=== PATIENT | female | born 1975 | race Caucasian/White ===

== ENCOUNTER 2018-11-14 11:05 | Emergency (ER) | payer OTHER, SELFPAY ==
[2018-11-14 11:06] VITALS: BP 169/121; PULSE 95; RESP 16; TEMP 36.7; O2SAT 98; BMI 33.9
--- NOTE | 2018-11-14 11:13 | CT_ITS ---
STUDY: CT ABDOMEN AND PELVIS WITHOUT CONTRAST REASON FOR EXAM: Female, 43 years old. Left flank pain and hematuria RADIATION DOSAGE (If Supplied By Facility): CTDIvol = ( 14.95 ) mGy, DLP = ( 818.22 ) mGycm TECHNIQUE: Transaxial images were obtained from the dome of the diaphragm to the symphysis pubis without oral contrast, and without intravenous contrast. Sagittal and coronal images were reconstructed. Individualized dose optimization techniques were used for this CT. COMPARISON: CT abdomen and pelvis 08/30/2016. FINDINGS: Lack of intravenous contrast limits evaluation of abdominal and pelvic organs. There is a 3 mm left lower lobe subpleural nodule on series 2 image 16, this may have been previously obscured by atelectasis on prior exam. The visualized portions of the heart are within normal limits. Normal liver. Normal gallbladder and extrahepatic biliary system. Normal spleen. Normal pancreas. Normal bilateral adrenal glands. Normal right kidney. There is mild left hydronephrosis secondary to a 3 mm proximal left ureteral stone near the left UPJ. There is a punctate, nonobstructing left renal lower pole stone. Normal visualized stomach. Normal small intestine. Normal colon. The appendix is visualized and appears normal. Normal abdominal aorta. Normal inferior vena cava. Normal retroperitoneum. Normal urinary bladder. Normal abdominal wall. There is mild levocurvature of the lumbar spine. CT/Abdomen/Pelvis without Cont IMPRESSION: Mild left hydronephrosis secondary to a 3 mm proximal left ureteral stone near the left UPJ. There is a punctate, nonobstructing left renal lower pole stone. Electronically Signed: Theresa Colorado, at 12:19 EDT Tel , Service support ,
--- NOTE | 2018-11-14 11:15 | ED.VIS.GEN ---
History of Present Illness Chief Complaint: Complaint Narrative: 43-year-old female presents with 2 days of bilateral flank pain, lower anterior abdominal pain, hematuria, and dysuria. Started out gradually, mostly as dysuria and urinary urgency but the pain has progressed since then. It did not involve the flanks until this morning. It is worse on the left flank. She was at the urgent care this morning and had a large amount of blood in her urine. There was concern for kidney stone, of which she has no known history. No obvious relieving or exacerbating factors. Current severity is moderate. Past Medical History - Allergies and Home Meds Allergies/Adverse Reactions: Allergies propoxyphene [From Darvocet-N] Adverse Reaction (Unknown, Verified 09/13/16 14:45) Vomiting Primary Care Physician: Brenden Disla MD [Primary Care Provider] - Smoking Status: Never smoker Review of Systems General: Denies: Chills, Fever, Sweats Eyes: Denies: Visual changes - bilaterally, Diplopia ENT: Denies: Rhinorrhea, Sore throat Cardiovascular: Denies: Chest pain, Palpitations Respiratory: Denies: Dyspnea, Cough, Dyspnea on exertion Gastrointestinal: Reports: Abdominal pain, Nausea. Denies: Vomiting, Diarrhea, Melena, Hematochezia Genitourinary: Reports: Dysuria, Hematuria, Frequency Musculoskeletal: Reports: Back pain. Denies: Extremity Pain Skin: Denies: Rash, Wounds Neurological: Denies: Headache, Weakness, Numbness Physical Exam Vital Signs/Narrative: Vital Signs Temp Pulse Resp BP Pulse Ox 11/14/18 11:06 98.1 F 95 16 169/121 H 98 General: Acute Distress Head: Normocephalic, Atraumatic Eyes: Perrl, EOMI ENT: Dry mucous membranes Neck: Supple, Nontender Cardiovascular: Regular rate, Regular rhythm, No murmurs Respiratory: No distress, CTA bilaterally, Chest nontender Abdomen: Soft, Nontender, Nondistended, Normal bowel sounds Back: Nontender, Normal Inspection Extremities: Nontender, No edema Skin: Normal color, No rash Neurological: Alert, Oriented x3, Cranial nerves II-XII grossly intact, Normal Strength, Normal Sensation Psychological: Normal affect, Normal Mood Diagnostic/Tx/Re-eval - Medical Decision Making CT scan reveals a 3 mm obstructing proximal stone on the left. There is hydronephrosis on the left. Urinalysis is unremarkable except for blood. Labs are within normal limits. No leukocytosis. I do not feel she needs antibiotics. She was given IV fluids and pain meds and feels much better. She is comfortable going home. She was referred to urology. She will return if worse. ED Disposition - Plan for ED Patient: Disposition: Home or Assisted Living Diagnosis: Ureteral obstruction, left Instructions: ED Stone Renal W Colic Prescriptions: Oxycodone HCl/Acetaminophen [Percocet 5/325] 1 tablet PO Q6H PRN PRN 3 Days #12 tablet PRN Reason: Pain Tamsulosin HCl [Flomax] 0.4 mg PO DAILY #7 capsule Referrals: Haris Doherty MD [STAFF PHYSICIAN] - As soon as possible
[2018-11-14] MEDS: 0.9% Normal Saline 1,000 ML 999 ML IV ×2 (11:32→13:01)
[2018-11-14] MEDS: Ondansetron 4 MG/2 ML Vial IV (11:32)
[2018-11-14] MEDS: Ketorolac 30 MG/ML Syringe IV (11:32)
[2018-11-14 11:37] LABS: Mucous, Urine 0 SEEN /hpf (<or=2+); White Blood Cells 0 SEEN /hpf (0-5)
[2018-11-14 11:43] LABS: Color, Urine Yellow (Yellow); Glucose, Dipstick Normal (Normal); Ketone-Dipstick Negative (Negative); Leukocyte Esterase-Dipstick Negative /ul (Negative); Nitrite-Dipstick Negative (Negative); Occult Blood-Urine 250 /ul (Negative); Protein-Dipstick Negative (Negative); Urine Bilirubin Dipstick Negative (Negative); Urine Clarity Cloudy (Clear); Urine Urobilinogen Normal (Normal); Urine pH 6.5 (5.0 - 8.0)
[2018-11-14 11:45] LABS: Absolute Lymphocyte Count 1.76 X10^3/ul (0.83-4.51); Absolute Neutrophil Count 8.6 X10^3/uL (2.0-7.7); Basophil# 0.02 X10^3/uL; Basophil% 0.2 % (0-1); Eosinophil# 0.08 X10^3/uL; Eosinophils% 0.7 % (0-5); Hematocrit 42.8 % (37-47); Hemoglobin 14.5 g/dl (12.0-15.0); Lymphocyte # 1.76 X10^3/ul (4.0); Lymphocyte % 15.3 % (19-41); Mean Corp Hgb Conc 33.9 g/gl (32-36); Mean Corpuscular Hgb 29.8 pg (27.0-32.0); Mean Corpuscular Volume 87.9 fL (81-99); Mean Platelet Vol. 9.1 fl (6.2-12.0); Monocyte# 0.97 X10^3/uL; Monocyte% 8.4 % (0-10); Neutrophil # 8.64 X10^3/uL (2.7-7.7); Neutrophil % 75.2 % (47-70); Platelet Count 299 K/mm3 (150-450); RBC Distribution Width SD 44.9 fl (35.1-43.9); Red Blood Count 4.87 M/mm3 (4.2-5.4); White Blood Count 11.5 K/mm3 (4.4-11.0)
[2018-11-14 11:49] LABS: POSITIVE COUNT NO; POSITIVE DIFFERENTIAL NO; POSITIVE MORPHOLOGY NO
[2018-11-14 11:52] LABS: Anion Gap 8 (5-15); BUN 10 mg/dL (7-18); BUN/Creat Ratio 10.6 RATIO (10-20); Calcium,Total 8.6 mg/dL (8.5-10.1); Chloride 105 mmol/L (98-107); Creatinine, Serum 0.94 mg/dL (0.55-1.02); EST Glomerular Filtration Rate 68 mL/min (>60); Est Glom Filt Rate - Afr Amer 83 mL/min (>60); Estimated Creatinine Clearance 68.01 ml/min; Glucose 101 mg/dL (74-106); Potassium 3.8 mmol/L (3.5-5.1); Sodium Level 139 mmol/L (136-145)
[2018-11-14 11:55] LABS: Red Blood Cells-Urine > 100 SEEN /hpf (0-5)
[2018-11-14 11:58] LABS: Bacteria RARE /hpf (None Seen); Squamous Epithelial Cells - UA 0-5 SEEN /hpf (5-10)
[2018-11-14] MEDS: Morphine 4 MG/ML Syringe IV (13:00)
[2018-11-14 13:06] VITALS: BP 167/78; PULSE 78; RESP 16; O2SAT 99
[2018-11-14] MEDS: HYDROmorphone 1 MG/ML Syringe IV (14:33)
[2018-11-14 15:00] VITALS: BP 128/80; PULSE 74; RESP 16; O2SAT 97
--- NOTE | 2018-11-14 17:41 | ED.RN ---
PT CALLED ASKING ABOUT NAUSEA MEDICATION. PT RECEIVED DOSE OF ZOFRAN IN ED, BUT NO PRESCRIPTION WAS GIVEN ON DISCHARGE. REQUESTING A PRESCRIPTION VIA PHONE CALL FOR ZOFRAN. THIS RN SPOKE WITH DR. BUNN. DR. BUNN CALLED IN PRESCRIPTION FOR ZOFRAN TO PT REQUESTED PHARMACY. THIS RN EDUCATED PT OVER THE PHONE ON THE ZOFRAN. VERBALIZES UNDERSTANDING AND DENIES ANY FURTHER QUESTIONS.
== END 2018-11-14 15:36 | disposition home or self-care (01) ==
PROVIDERS: Emergency Provider Emergency Medicine; Family Provider Family Medicine; PCP Family Medicine
DX: N13.1 Hydronephrosis with ureteral stricture, not elsewhere classified (principal)
CPT/HCPCS: 74176; 80048; 81001; 85025; 96361; 96374; 96375; 99283; J7030; J2405

== ENCOUNTER → 2018-11-17 | Outpatient (CLI) | payer OTHER, SELFPAY ==
[2018-11-14 11:06] VITALS: BMI 33.9
--- NOTE | 2018-11-17 10:50 | RAD_ITS ---
STUDY: X-RAY - ABDOMEN/PELVIS REASON FOR EXAM: Female, 43 years old. Left ureteral stone. TECHNIQUE: AP supine view. COMPARISON: CT abdomen and pelvis without contrast 11/14/2018. FINDINGS: Normal visualized lung bases. 4.5 x 3 mm radiopaque calculus above the left L2 transverse process is unchanged. Normal bowel gas pattern. There is no demonstrated free abdominal air. The visualized liver, spleen and kidneys are grossly normal in size and morphology. Normal soft tissue structures. Normal visualized osseous structures. RAD/Abdomen Single View IMPRESSION: 4.5 x 3 mm radiopaque calculus above the left L2 transverse process is unchanged when compared to CT of the abdomen of 11/14/2018. Electronically Signed: Nakul Dee MD at 11:26 EDT , Service support ,
== END | disposition home or self-care (01) ==
PROVIDERS: Family Provider Family Medicine; PCP Family Medicine; Referring Provider Nurse Practitioner Adult Health; Visit Provider Nurse Practitioner Adult Health
DX: N20.1 Calculus of ureter (principal)
CPT/HCPCS: 74018

== ENCOUNTER 2018-11-19 14:19 | Day surgery (SDC) | payer OTHER, SELFPAY ==
--- NOTE | 2018-11-19 12:03 | RAD_ITS ---
STUDY: X-RAY - ABDOMEN/PELVIS REASON FOR EXAM: Female, 43 years old. Left kidney stone. TECHNIQUE: Single AP view of the abdomen / pelvis. COMPARISON: Comparison is made with prior examination dated November 17, 2018. FINDINGS: There is a moderate amount of colonic fecal material. There is evidence of a 4.2 mm x 3 mm calculus overlying the transverse processes of the L2 vertebra on the left side. This is unchanged. Normal soft tissue structures. Normal visualized osseous structures. RAD/Abdomen Single View IMPRESSION: Stable appearance and location of the 4.2 mm x 3 mm calculus overlying the transverse processes of the L2 vertebra on the left side. Electronically Signed: Axel Badillo, at 14:54 EDT , Service support ,
[2018-11-19 14:51] VITALS: BP 142/95; PULSE 90; RESP 18; TEMP 37.2; O2SAT 100; BMI 34.4
[2018-11-19] MEDS: Cefazolin 2 GM in 0.9% Normal Saline 100 ML IV (15:43)
[2018-11-19 17:04] VITALS: BP 142/95; BP 147/96; PULSE 81; RESP 16; TEMP 36.8; O2SAT 94
--- NOTE | 2018-11-19 17:04 | DCINST_ITS ---
Discharge Diet: Light diet - advance as tolerated Discharge Activity: Return to Normal Activity Instructions: Shock Wave Lithotripsy, Ureteral Stents Allergies/Adverse Reactions: Allergies propoxyphene [From Darvocet-N] Adverse Reaction (Unknown, Verified 11/18/18 08:53) Vomiting Medications to take at Discharge Ibuprofen [Motrin] 800 mg PO Q6H 09/13/16 Multivitamin [Multiple Vitamins] 1 each PO DAILY 09/13/16 Tamsulosin HCl [Flomax] 0.4 mg PO DAILY #7 capsule 11/14/18 Ondansetron HCl [Zofran] 4 mg PO PRN PRN 11/18/18 Oxycodone HCl/Acetaminophen [Percocet 5-325 mg Tablet] 1 each PO DAILY PRN 11/18/18 Polyethylene Glycol 3350 [Miralax] 17 gm PO BID 11/18/18 Hydrocodone/Acetaminophen [[place] 5-325 Tablet] 1 ea PO Q4H PRN PRN 5 Days #20 tab 11/19/18 The following prescriptions were given: Hydrocodone/Acetaminophen [[place] 5-325 Tablet] 1 ea PO Q4H PRN PRN 5 Days #20 tab PRN Reason: Pain Primary Care Physician: Brenden Disla MD [Primary Care Provider] - Test Results: Test results from this visit will be discussed in further detail at your follow- up appointment, if applicable. Please Follow Up With: Haris Doherty MD When: please call to make an appointment. xray and stent removal.
--- NOTE | 2018-11-19 17:06 | PCM.OPRPT ---
Report of Operation Date of Procedure: 11/19/18 Pre-Operative Diagnosis: Left ureteral calculi proximal Post-Operative Diagnosis: Same Surgery/Procedure Performed:: Cystoscopy and left stent placement, left extracorporeal shockwave lithotripsy Description of Surgical Findings:: 43-year-old female presented to the emergency room with severe renal colic she had a stone in the proximal left ureter causing hydronephrosis and obstruction. She is elected to undergo shockwave lithotripsy possible stent placement for treatment of the stone. She understands is always risk of bleeding infection failure to treat the stone and requiring multiple procedures. 43-year-old female taken back to the operating room at the smooth induction of general anesthesia she was placed in dorsolithotomy position. We then placed her flat on the table identified the stone in the proximal ureter commenced with shockwave lithotripsy and after 2000 shockwaves a stone is not really broken much we checked fluoroscopy during treatment to make sure we are on the focal point which we were, at that point we decided to place a stent. The urethra and vaginal area prepped and draped in usual sterile fashion in the bladder with a 21 [place] rigid cystourethroscope identified the trigone, identified the left ureteral orifice advanced a wire up past the stone up into the kidney and then over wire advanced a 6 [place] by 26 cm stent, when the stent reached the stone was quite hard to get the stent passed it took a little bit of force and then finally I was able to get the stent passed a stone in the stone broke free loose and then the stent coiled in the bladder and in the kidney in good position pulled the wire. We then proceeded with more shockwave treatments we gave another 2000 shockwaves to the stone with a total of 4000 kV ranging from 5-7 and at the end of the treatment appeared the stone is successfully fragmented little tiny pieces we could not see any more significant calcification on fluoroscopy. Left the stent in place the string is intact for easy extraction plan to see the patient next week with a KUB and if it is clear we will remove the stent. Type of Anesthesia:: General Drains: stent - Admit VTE Documentation VTE Present on Admission: No VTE Mechan Device Prophylaxis: SCD's
[2018-11-19 17:15] VITALS: BP 142/95; BP 158/97; PULSE 73; RESP 16; O2SAT 97
[2018-11-19 17:30] VITALS: BP 142/95; BP 162/98; PULSE 75; RESP 16; TEMP 38; O2SAT 96
[2018-11-19] MEDS: oxyCODONE 5 MG Tablet PO (18:20)
[2018-11-19 18:44] VITALS: BP 142/95; BP 168/93; PULSE 75; RESP 16; TEMP 37; O2SAT 100
== END 2018-11-19 19:06 | disposition home or self-care (01) ==
LOC: SDC 14:20 → AC 14:36
PROVIDERS: Family Provider Family Medicine; PCP Family Medicine; Referring Provider Urology; Visit Provider Urology
PROC: (CPT 50590; principal; 2018-11-19 16:20)
DX: N13.2 Hydronephrosis with renal and ureteral calculous obstruction (principal); Z87.442 Personal history of urinary calculi
CPT/HCPCS: 50590; 52332; 74018; J7120; C2617; J2405

== ENCOUNTER → 2018-11-24 13:19 | Outpatient (CLI) | payer OTHER, SELFPAY ==
[2018-11-19 14:51] VITALS: BMI 34.4
--- NOTE | 2018-11-24 13:20 | RAD_ITS ---
STUDY: X-RAY - ABDOMEN/PELVIS REASON FOR EXAM: Female, 43 years old. Status post stent placement and lithotripsy. TECHNIQUE: Single AP view of the abdomen / pelvis. COMPARISON: 11/19/2016. FINDINGS: There is a new left sided double-J stent catheters with the proximal tip in the region of the left renal pelvis and the distal tip in the region of the bladder. There are nonspecific gaseous bowel loops and colon. There is mild fecal retention. The previously noted small stone on the left side of L2 is not seen at this time. Normal soft tissue structures. Normal visualized osseous structures. RAD/Abdomen Single View IMPRESSION: Status post left double J stent catheter placement. No abnormal calcifications are identified. Electronically Signed: Basil Mi MD at 8:28 EDT Tel , Service support ,
== END ==
PROVIDERS: Family Provider Family Medicine; PCP Family Medicine; Referring Provider Nurse Practitioner Adult Health; Visit Provider Nurse Practitioner Adult Health
DX: N20.0 Calculus of kidney (principal)
CPT/HCPCS: 74018

== ENCOUNTER 2023-05-02 12:18 | Observation (INO) | payer BC, SELFPAY ==
--- NOTE | 2023-04-23 10:10 | HP.PCM_ITS ---
History and Physical Date of Admission: 05/02/23 HPI: The patient is a 47 year old female presenting for pre-operative visit. She is scheduled for [facility], for AUB and uterine fibroids on 05/02/23. Procedure discussed along with risks, benefits and complications. Other alternatives discussed for management. Consent form signed? Yes. ? ? PAST MEDICAL HISTORY PAST MEDICAL HISTORY Diagnosis Date ? Back pain, chronic ? ? Irritable bowel syndrome ? ? Other anxiety states ? ? Tachycardia, unspecified ? ? Variants of migraine, not elsewhere classified, without mention of intractable migraine without mention of status migrainosus ? ? ? PAST SURGICAL HISTORY PAST SURGICAL HISTORY Procedure Laterality Date ? ARTHRS AIDED ANT CRUCIATE LIGM RPR/AGMNTJ/RCNSTJ ? 10/07/2012 ? Right knee ? LAPARCOPIC LYSIS OF ADHESIONS ? 09/18/2016 ? Laparascopy with bilateral salpingectomy and KENISHA for TOA after IUD insertion ? PAST SURGICAL HISTORY OF ? 1999 ? LEFT SHOULDER ARTHROSCOPY ? PAST SURGICAL HISTORY OF ? remotely ? wisdom teeth ext ? PAST SURGICAL HISTORY OF ? 05/01/2013 ? right knee scope with shaving & debridement ? ? ? CURRENT MEDICATIONS Current Outpatient Medications Medication Sig Dispense Refill ? tranexamic acid (LYSTEDA) 650 mg tablet Take 2 tablets by mouth three times daily. dispense every 21-28 days as needed for menstrual cycles 30 tablet 11 ? ferrous sulfate (IRON ORAL) Take by mouth. ? ? ? ibuprofen (MOTRIN) 200 mg tablet Take 200 mg by mouth every 6 hours as needed. ? ? ? MULTI-VITAMIN ORAL Take by mouth. ? ? ? naproxen (NAPROSYN) 500 mg tablet Take 1 tablet by mouth twice daily as needed. FOR PAIN. TAKE WITH FOOD. 60 tablet 3 ? EPINEPHrine (EPIPEN) 0.3 mg/0.3 mL (1:1,000) atIn Inject 0.3 mL intramuscularly as directed. 1 Each 1 ? No current facility-administered medications for this visit. ? ? ALLERGIES: Darvocet-N 100 [Propoxyphene N-Acetaminophen] and Wasps ? PERSONAL HISTORY: SOCIAL HISTORY Social History ? Tobacco Use ? Smoking status: Never ? Smokeless tobacco: Never Vaping Use ? Vaping Use: Never used Substance Use Topics ? Alcohol use: Yes ? ? Comment: rare ? Drug use: No ? ? Comment: remote marijuana use ? FAMILY HISTORY: FAMILY HISTORY FAMILY HISTORY Problem Relation Age of Onset ? Cancer Mother ? ? SKIN CANCER ? Lipids Mother ? ? High cholesterol ? Hypertension Brother ? ? Heart Brother ? ? AFIB ? Stroke Maternal Grandmother ? ? Colon Cancer Maternal Grandfather ? ? Arthritis Paternal Grandmother ? ? Thyroid Paternal Grandmother ? ? Osteoporosis Paternal Grandmother ? ? Heart Paternal Grandfather ? ? [place] ? Breast Cancer Paternal great-grandmother ? ? ? REVIEW OF SYMPTOMS: GENERAL: denies fevers or chills ENDOCRINOLOGY: has not been on steroids Cardiology : denies palpitations or chest pain Respiratory: denies SOB or cough Hematology: denies history of prolonged bleeding or easy bruising or VTE Allergy: Denies history of personal or family history of allergy to anesthesia PHYSICAL EXAMINATION: ? VITALS: Last menstrual period 09/24/2022. ? GENERAL: The patient is well nourished, well hydrated in no acute distress. , The patient is oriented to time, place, and person. NECK: Supple. No lynphadenopathy, normal thyroid, no thyromegaly. LUNGS: Clear to auscultation bilaterally. no wheezes, rhonchi or rales HEART: Regular rate and rhythm, Normal heart sounds, and No murmurs or gallops GENITALIA: Normal external genitalia, Urethral meatus normal, Bladder nontender, normal vagina and normal vaginal tone, normal cervix, normal uterus, size and consistency, normal adnexa without masses or tenderness, and perineum WNL WET PREP: Not indicated ? IMPRESSION: AUB and uterine fibroids ? PLAN: The risks/benefits/alternatives and personal involved for the planned LAVH were reviewed with the patient. Her questions were answered to her satisfaction and she desires to proceed. Consent was signed. I reviewed with her postop instructions and expectations. ? ? I have reviewed and updated past medical and surgical history, medications and allergies Assessment & Plan Assessment/Plan (1) Abnormal uterine bleeding (AUB): (2) Uterine fibroid: (3) Adenomyosis:
[2023-05-02] VITALS (11 sets, daily range): BP systolic 111–146; BP diastolic 67–97; PULSE 62–93; RESP 12–18; TEMP 36.3–37.4; O2SAT 18–100; BMI 31.9; BMI 33.0
[2023-05-02] MEDS: Celecoxib 200 MG Capsule 400 MG PO (06:29)
[2023-05-02] MEDS: Acetaminophen 500 MG Tablet 1000 MG PO (06:29)
[2023-05-02] MEDS: Scopolamine 1mg/72hr Patch 1 PATCH TD (06:30)
[2023-05-02] MEDS: Gabapentin 600 MG Tablet PO (06:31)
[2023-05-02 06:35] LABS: Internal QC Validated? YES +Cl - CLEAR BKGD; Pregnancy, Urine Negative Negative
[2023-05-02 06:43] LABS: Bedside Glucose 92 mg/dL (74-106)
[2023-05-02] MEDS: dexAMETHasone 4 MG/ML Vial 8 MG IV (06:45)
[2023-05-02] MEDS: Enoxaparin 40 MG/0.4 ML Syringe SC (06:45)
[2023-05-02] MEDS: Lactated Ringers 1,000 ML 40 ML IV (06:45)
[2023-05-02 06:48] LABS: Hematocrit 43.9 % (37-47); Hemoglobin 14.3 g/dL (12.0-15.0); Mean Corp Hgb Conc 32.6 g/dL (32-36); Mean Corpuscular Hgb 28.6 pg (27.0-32.0); Mean Corpuscular Volume 87.8 fL (81-99); Mean Platelet Vol. 9.6 fl (6.2-12.0); Platelet Count 307 K/mm3 (150-450); RBC Distribution Width SD 44.7 fl (35.1-43.9)
[2023-05-02 07:12] LABS: Magnesium 2.1 mg/dL (1.6-2.6)
--- NOTE | 2023-05-02 07:30 | HYST_PTH ---
PATIENT: EVERARDO GARCIAEACCT #:[id number] LOC: MS3 U#:[id number] AGE/SX: 47/F ROOM: NH312 RE05/02/[address]: Dr. Lisa Yates MD : 1975 BED: 1 DIS: 05/03/2023 SPEC #: [id number] RECD: 05/02/23 11:59 STATUS: MILAGRO KUMAR #: [id number] DEJUAN: 05/02/23 07:[address]: Lisa Yates DEPT: SURGICAL PATHOLOGY RECD BY: Rosetta Landon ENTERED: 05/02/23 11:59 SP TYPE: HYSTERECT OTHR DR: MD Dr. Brenden Chávez MD Tissues: Uterus, NOS Procedures: Surgery Specimen Level V HEADER OPERATION: ERAS, hysterectomy, LAVH PRE-OP DIAGNOSIS: Abnormal uterine bleeding, uterine fibroid, adenomyosis TISSUE SUBMITTED: Uterus and cervix MICROSCOPIC DIAGNOSIS Uterus, hysterectomy: Cervix - Nabothian cysts and mild chronic inflammation. Endometrium - secretory endometrium. Myometrium - leiomyomas. AM:franky 05/03/2023 MICROSCOPIC DESCRIPTION Slides are reviewed. GROSS DESCRIPTION Received in fixative is one container labeled with the patient's name and designated uterus and cervix. The specimen consists of a previously opened uterus with attached cervix without fallopian tubes or ovaries measuring 17.0 x 16.0 x 9.5 cm and weighing 615 gm. The endocervical canal measures 5.0 cm in length and is grossly unremarkable. The elongated endometrial cavity measures 6.0 x 3.0 cm. The velvety, reddish endometrium measures up to 0.2 cm in thickness. The myometrium measures 4.0 cm in average thickness and is distorted by multiple spherical rubbery nodules resembling leiomyomas that range in size from 0.7 to 5.5 cm. Cut sections of these nodules reveal a whorled, rubbery surface without areas of cyst formation, necrosis or hemorrhage. Maintenance Tech sections are submitted in nine cassettes as follows: 1 - anterior cervix, 2 - posterior cervix, 3-6 - endometrium and myometrial, 7??largest myometrial mass, 8 - second largest myometrial mass, 9 - third largest myometrial mass. / AM:franky 05/02/2023 TC:1 CPT: 43453
[2023-05-02] MEDS: Magnesium 1 GM over 15 mins IV (07:32)
[2023-05-02] MEDS: Cefazolin 2 GM in 0.9% Normal Saline (100mL Bag) 100 ML IV (07:43)
[2023-05-02] MEDS: Bupivacaine Mpf 0.5% 30 ML VIAL (08:15)
[2023-05-02] MEDS: Lidocaine 1%/Epi 1:200 (30ml) 30 ML AMPUL (10:00)
[2023-05-02] MEDS: Ondansetron 4 MG/2 ML Vial IV (10:16)
[2023-05-02] MEDS: Lactated Ringers @ 70 MLS/HR 70 ML IV (10:55)
--- NOTE | 2023-05-02 11:46 | PCM.OPRPT ---
Problems Associated Problem List Diagnoses (1) Abnormal uterine bleeding (AUB): (2) Uterine fibroid: (3) Adenomyosis: Report of Operation Date of Procedure: 05/02/23 Pre-Operative Diagnosis: uterine fibroids, AUB, adenomyosis Post-Operative Diagnosis: same Surgery/Procedure Performed:: ROBERT Description of Surgical Findings:: enlarged bulky uterus weighing 647 gm in the operating room. Grossly normal ovaries. fallopian tubes absent Surgeon: Lisa Yates natural resource manager: Doug Ferro Type of Anesthesia: General Anesthesiologist: Erna Hagen Special Medications: none Specimen's removed: uterus and cervix Drains: fole Estimated Blood Loss (mL): 350 Fluids Replaced: 1999 Description of Procedure: The patient was taken to the operating room where she was prepped and draped in the dorsal lithotomy position. Her arms were tucked to the side and padded and her legs were placed in the yellowfin stirrups. Care was taken to ensure that she was placed in a neurologically safe and neutral position. A weighted speculum was placed in the vagina and the anterior lip of the cervix was grasped with a single-tooth tenaculum. The uterus sounded to 10 centimeters. The ZUMI uterine manipulator was placed and secured. The Le[place] catheter was placed to straight drain. Attention was turned to the abdominal portion of the case. Before skin incisions were made they were infiltrated with 0.5% Marcaine solution for local anesthetic. A 5 mm supraumbilical incision was made approximately 3 cm above the umbilicus was made and while tenting the anterior abdominal wall up with towel clamps a 5 mm blade less trocar and sleeve were advanced directly into the peritoneal cavity. Peritoneal placement was confirmed with the laparoscope the pneumoperitoneum was created, and the underlying abdominal contents were intact. The patient was placed in Trendelenburg and the above findings were noted. Right and left lateral 5 mm trochars were placed under direct visualization without difficulty. The fallopian tubes were surgically absent. Because of the bulky size of the uterus it did take an extra 25 minutes to do the laparoscopic portion of the case because he had acute manipulating the uterus with graspers as we could not easily move it. The round ligaments were clamped sealed and transected and a window was made in the peritoneum. The utero-ovarian ligaments were then clamped, sealed and transected with the LigaSure device and the pedicles were hemostatic The bladder flap was dissected down with the LigaSure device and blunt dissection and the uterine arteries were then skeletonized. The uterine arteries were clamped, sealed and transected on both sides with the LigaSure device. There was some backbleeding along the right uterine artery. There is also some active bleeding. This was secured with the LigaSure device. However from the back bleeding in this artery that is where the majority of the blood loss from the case came from. At this point the pedicles were all examined and found to be hemostatic. Attention was turned to the vaginal portion of the case. 1% lidocaine with dilute epinephrine solution was used to infiltrate the anterior vaginal epithelium over the cervix. An incision was made from around the entire vaginal epithelium and the vaginal epithelium was dissected back with blunt sharp dissection. The anterior colpotomy incision was made. The posterior colpotomy was made sharply. The vaginal epithelium was tagged to the peritoneum. The uterosacral ligaments were clamped, transected and suture-ligated. The uterine arteries and lower part of the cardinal ligament were clamped, transected and suture-ligated and were hemostatic. There is a small amount peritoneum on both sides that was then clamped, transected and suture-ligated. The uterus is very bulky. I began to bivalve it. Performed 2 myomectomies to get out to 5 cm fibroids. I was then able to bivalve the uterus enough that we are able to bring the uterus out through the vaginal incision. The pedicles were examined and found to be hemostatic. The vaginal cuff was then closed in a horizontal fashion with interrupted 0 Vicryl [id number] sutures. A sponge stick was placed in the vagina to help place traction against the vaginal cuff. The laparoscope was reinserted into the abdomen and the pneumoperitoneum was re-created. The pedicles were reexamined and found to be hemostatic. The vaginal cuff was hemostatic. The right and left lateral ports were taken out and the sites were hemostatic. The pneumoperitoneum was released and even under low pressure there was no bleeding of any of the pedicles are vaginal cuff. The umbilical port was removed. The umbilical skin incisions were closed with Monocryl suture and skin glue by CONFERENCE RESERVATIONIST. The vaginal instruments were removed by me and a vaginal sweep was completed by me. Sponge and needle counts were correct as were instrument counts. Dr. Connolly then began her portion of the case. The surgery was performed by me with assistance . There were no qualified residents available for this procedure. All sponge lap and needle counts were correct and the patient was transferred to the recovery room in stable condition. Grafts/Implants Used: none Procedure Start Time: 08:10 Procedure Stop Time: 10:00 Complications none Admit VTE Documentation VTE Present on Admission: No VTE Mechan Device Prophylaxis: SCD's VTE Pharm Prophylaxis ordered?: No Reason prophylaxis not ordered:: Procedure Not Indicated
[2023-05-02 12:05] LABS: Hemoglobin 12.8 g/dL (12.0-15.0); Mean Corp Hgb Conc 31.2 g/dL (32-36); Mean Corpuscular Hgb 28.4 pg (27.0-32.0); Mean Corpuscular Volume 90.9 fL (81-99); Mean Platelet Vol. 9.2 fl (6.2-12.0); Platelet Count 268 K/mm3 (150-450); RBC Distribution Width CV 13.7 % (11.6-14.6); RBC Distribution Width SD 46.2 fl (35.1-43.9); Red Blood Count 4.51 M/mm3 (4.2-5.4); White Blood Count 14.2 K/mm3 (4.4-11.0)
--- NOTE | 2023-05-02 12:55 | PCM.OPRPT ---
Report of Operation Date of Procedure: 05/02/23 Pre-Operative Diagnosis: Rectocele Post-Operative Diagnosis: Same Surgery/Procedure Performed:: Posterior repair, bilateral sacrospinous ligament fixation with dermis, cystoscopy with bilateral ureteral catheterization Surgeon: Keena Connolly Type of Anesthesia: General Estimated Blood Loss (mL): total 350 Description of Procedure: The patient is a 47-year-old female presenting for a hysterectomy and repair of her pelvic organ prolapse. Informed consent was obtained. The patient was taken to the operating room and placed on the operating room table. She was appropriately padded and secured. Anesthesia monitored the head, neck, airway, IV access and vital signs throughout the case. Once anesthesia was appropriate administered, the patient was placed into dorsolithotomy position and was prepped and draped in usual sterile fashion. A León catheter was inserted to straight drain. Dr. Yates performed her portion of the procedure, please see her operative report for full details. At the conclusion of her procedure, the patient was positioned into dorsolithotomy and Trendelenburg positioning. The posterior vaginal wall was isolated using Allis clamps and the submucosa was injected with 1% lidocaine with epinephrine for hydrostatic dissection and hemostatic control. A midline incision was made in the mucosa and blunt and sharp dissection was performed bilaterally until the apex was reached and bilateral ischial spines were palpable. The sacrospinous ligaments were identified and freed from surrounding tissues. Using the Capio device, an Ethibond suture was passed through the ligament on each side, brought through the dermis graft and then out through the vaginal mucosa at the apex bilaterally. At the midline the dermis was secured to the apex vaginal mucosa using interrupted 2-0 Vicryl. The perineal body was brought together using 2-0 PDS interrupted sutures. At this time the dermis was trimmed and secured circumferentially using interrupted 2-0 Vicryl. The vaginal mucosa was closed with running interlocking 2-0 Vicryl. The León catheter was removed and the cystoscope was inserted through the urethra under direct visualization. The bladder mucosa was visualized in its entirety revealing no evidence of laceration, bleeding, foreign body or mucosal abnormality. Bilateral ureteral orifices were identified. First the left followed by the right were cannulated with a 5 [place] whistle-tip catheter. The catheter easily advanced to 20 cm bilaterally without evidence of obstruction, injury. At this time the cystoscope was removed and the León catheter was replaced. There was hemostasis with no oozing identified from the suture lines. The vagina was then packed with vaginal packing. The patient was awakened and taken to the recovery room in good condition. There were no complications during this procedure. Grafts/Implants Used: Dermis Complications None Admit VTE Documentation VTE Present on Admission: Yes VTE Mechan Device Prophylaxis: SCD's VTE Pharm Prophylaxis ordered?: Yes
--- NOTE | 2023-05-02 13:02 | DCINST_ITS ---
Discharge Instructions Diet Discharge Diet: No restrictions Activity Discharge Activity: May Not Drive (For 2 weeks) and May Shower May resume sexual activity in: 8 weeks Lifting Restrictions: 5 pounds Additional Activity Instructions:: No exercise, no strenuous activity, no sexual activity, no vacuuming, no hot tubs/swimming/tub bathing Dressing / Incision Call your doctor if your incision/area has: Continuous Slow Oozing, Sudden Increased Bleeding, Increased Pain/ Swelling and Foul Smelling Discharge Call your doctor if you observe: Fever of 101 or Higher, Inability to urinate and Inability to have a bowel movement Follow Up Care Please Follow Up With: Keena Connolly MD When: The office will call the patient to make follow-up arrangements. Test Results: Test results from this visit will be discussed in further detail at your follow- up appointment, if applicable. Discharge Plan Admission Admit Date/Time: 05/02/23 12:18 Primary Reason for Your Visit: Laparoscopic assisted vaginal hysterectomy, Attending Provider: Lisa Yates Primary Care Provider: rBenden Disla Consulting Providers: Keena Connolly Discharge Orders/Prescriptions Prescriptions: New oxycodone 5 mg tablet 5 mg PO Q8H PRN (Reason: severe pain) 7 Days Qty: 10 0RF ibuprofen 800 mg tablet 800 mg PO Q8H PRN (Reason: pain) 30 Days Qty: 60 0RF Continued multivitamin [Multiple Vitamins] 1 EACH tablet 1 ea PO DAILY polyethylene glycol 3350 17 GM powder in packet 17 g PO DAILY ascorbic acid (vitamin C) [Vitamin C] 500 mg Capsule, Extended Release 500 mg PO DAILY cholecalciferol (vitamin D3) [Vitamin D3] 25 mcg (1,000 unit) Tablet 25 mcg PO DAILY cephalexin 500 mg capsule 500 mg PO TID Patient Comments: take 1 capsule by mouth three times a day until finished Held ferrous sulfate 325 mg (65 mg iron) Capsule, Extended Release 65 mg PO QODAY Hold Instructions: Resume on 05/15/23. hold until bowel movements regular Discontinued Ibuprofen [Motrin] 800 MG tablet 800 mg PO PRN PRN (Reason: Pain) tranexamic acid 650 mg tablet 1,300 mg PO TID PRN (Reason: HEAVY BLEEDING) Patient Comments: FOR HEAVY BLEEDING DURING PEROID Referrals / Follow Up: Brenden Disla MD [Primary Care Provider] - Disposition Disposition (needs filled in before D/C Order can be placed): Home, Self Care
[2023-05-02] MEDS: Ketorolac 15 MG/ML Vial IV ×2 (13:40→20:19)
[2023-05-02] MEDS: Morphine 2 MG/ML Syringe IV ×2 (15:29→18:47)
[2023-05-02] MEDS: Cefazolin 1 GM/50 ML BAG IV (15:34)
--- NOTE | 2023-05-02 18:26 | NURSING ---
4666- PT WANTED TO GET UP AND GO TO THE BATHROOM- SAT PT AT BEDSIDE AND SHE WANTED TO GO INTO THE BATHROOM- SITTING ON THE TOLIET AND STARTED TO GET NAUSEATED. HELP PT TO GET BACK TO BED AND SHE STATED I FEEL LIKE I'M GOING TO PASS OUT HELPED TO BED WITH 2 ASSIST AND PT STARTED FEELING BETTER- VS OBTAINED AND WNL
[2023-05-02] MEDS: Lactated Ringers 1,000 ML 100 ML IV (20:21)
[2023-05-02] MEDS: oxyCODONE 5 MG Tablet PO (22:19)
[2023-05-02] MEDS: Docusate Sodium 100 MG Capsule 200 MG PO (22:21)
[2023-05-03] MEDS: Cefazolin 1 GM/50 ML BAG IV (00:14)
[2023-05-03 00:16] VITALS: BP 139/86; PULSE 79; RESP 18; TEMP 36.8; O2SAT 96
[2023-05-03 03:27] VITALS: BP 132/81; PULSE 86; RESP 18; TEMP 36.8; O2SAT 97
[2023-05-03] MEDS: Ketorolac 15 MG/ML Vial IV ×3 (03:28→15:34)
[2023-05-03] MEDS: oxyCODONE 5 MG Tablet PO ×3 (06:23→18:23)
[2023-05-03] MEDS: Enoxaparin 40 MG/0.4 ML Syringe SC (06:24)
[2023-05-03] MEDS: Lactated Ringers 1,000 ML 100 ML IV (06:27)
[2023-05-03 06:40] LABS: Hematocrit 30.3 % (37-47); Hemoglobin 9.8 g/dL (12.0-15.0); Mean Corp Hgb Conc 32.3 g/dL (32-36); Mean Corpuscular Hgb 29.5 pg (27.0-32.0); Mean Corpuscular Volume 91.3 fL (81-99); Mean Platelet Vol. 9.4 fl (6.2-12.0); Platelet Count 227 K/mm3 (150-450); RBC Distribution Width SD 46.9 fl (35.1-43.9); Red Blood Count 3.32 M/mm3 (4.2-5.4); White Blood Count 8.6 K/mm3 (4.4-11.0)
--- NOTE | 2023-05-03 09:04 | PCM.PN.OB ---
Subjective Subjective Some and in her lower abdomen. Minimal vaginal bleeding. Some nausea and lightheadedness last night when she was up so she has not been up since. Vaginal packing removed this morning by Dr. Connolly. Patient to attempt voiding trials. Objective Data Objective Data Vital Signs: Vital Signs Temp Pulse Resp BP Pulse Ox O2 Del Method O2 Flow Rate 98.3 F 86 18 132/81 H 97 Room Air 2 05/03/23 03:27 05/03/23 03:27 05/03/23 03:27 05/03/23 03:27 05/03/23 03:27 05/03/23 03:27 05/02/23 13:23 Oxygen Flow Rate (L/min) 2 Oxygen Delivery Method Room Air Weight: 89.902 kg Body Mass Index (BMI) 33.0 Intake & Output: Intake and Output for Last 24 Hours 05/01/23 05/02/23 05/03/23 23:59 23:59 23:59 Intake Total 3322.33 / 3822.33 1550 / 1550 Output Total 950 / 1250 600 / 600 Balance 2372.33 / 2572.33 950 / 950 Lab / Micro Data 05/03/23 05:55 Labs: Laboratory Results - last 24 hr 05/02/23 11:54: WBC 14.2 H, RBC 4.51, Hgb 12.8, Hct 41.0, MCV 90.9, MCH 28.4, MCHC 31.2 L, RDW Std Deviation 46.2 H, RDW Coeff of Harriet 13.7, Plt Count 268, MPV 9.2 05/03/23 05:55: WBC 8.6, RBC 3.32 L, Hgb 9.8 L, Hct 30.3 L, MCV 91.3, MCH 29.5, MCHC 32.3, RDW Std Deviation 46.9 H, RDW Coeff of Harriet 14.0, Plt Count 227, MPV 9.4 Physical Exam Const Constitutional Narrative: Awake, alert, no acute distress Abdomen soft, moderate tenderness, no rebound, mildly distended as expected for postop status. Incisions are clean dry and intact. Assessment & Plan (1) Postoperative pain: PLAN: Plan Postop day #1 status post laparoscopic-assisted vaginal hysterectomy by me with vaginal prolapse repair by Dr. Connolly. Doing well overall. Vaginal packing removed this morning. Will attempt voiding trials. Hemoglobin is a little lower than expected for blood loss during surgery. However her input is much greater than her output so suspect some hemodilution as well. We will recheck CBC at noon and see how she does with voiding trials. Likely home this afternoon.
[2023-05-03 09:30] VITALS: BP 137/84; PULSE 77; RESP 18; TEMP 37.2; O2SAT 96
[2023-05-03] MEDS: Docusate Sodium 100 MG Capsule 200 MG PO (09:35)
[2023-05-03] MEDS: Polyethylene Glycol 3350 17 GM PACKET PO (09:35)
[2023-05-03 10:00] VITALS: O2SAT 95
[2023-05-03] MEDS: Morphine 2 MG/ML Syringe IV ×2 (11:08→14:17)
--- NOTE | 2023-05-03 11:18 | PCM.PN.GU ---
Subjective Subjective Patient was seen at approximately 8 AM this morning. No issues overnight. She is complaining of some rectal pain, however this was prior to vaginal packing and catheter being removed. We discussed recovery and expectations. Family at bedside. Objective Data Objective Data Vital Signs: Vital Signs Temp Pulse Resp BP Pulse Ox O2 Del Method O2 Flow Rate 98.3 F 86 18 132/81 H 95 Room Air 2 05/03/23 03:27 05/03/23 03:27 05/03/23 03:27 05/03/23 03:27 05/03/23 10:00 05/03/23 10:00 05/02/23 13:23 Oxygen Flow Rate (L/min) 2 Oxygen Delivery Method Room Air Weight: 89.902 kg Body Mass Index (BMI) 33.0 Intake & Output: Intake and Output for Last 24 Hours 05/01/23 05/02/23 05/03/23 23:59 23:59 23:59 Intake Total 3322.33 / 3822.33 1550 / 1550 Output Total 950 / 1250 600 / 600 Balance 2372.33 / 2572.33 950 / 950 Lab / Micro Data 05/03/23 05:55 Labs: Laboratory Results - last 24 hr 05/02/23 11:54: WBC 14.2 H, RBC 4.51, Hgb 12.8, Hct 41.0, MCV 90.9, MCH 28.4, MCHC 31.2 L, RDW Std Deviation 46.2 H, RDW Coeff of Harriet 13.7, Plt Count 268, MPV 9.2 05/03/23 05:55: WBC 8.6, RBC 3.32 L, Hgb 9.8 L, Hct 30.3 L, MCV 91.3, MCH 29.5, MCHC 32.3, RDW Std Deviation 46.9 H, RDW Coeff of Harriet 14.0, Plt Count 227, MPV 9.4 Physical Exam Const alert, oriented x3 and no apparent distress HEENT normocephalic, head/scalp atraumatic, hearing grossly normal bilaterally, external ears normal, external nose normal and moist oral mucous membranes Eyes General Eye: normal appearance of both eyes Neck supple General: normal visual inspection and trachea midline Lymph Lymphatic: no lymphedema noted Chest inspection of chest normal Resp normal respiratory effort, normal air movement, no retractions and no use of accessory muscles Effort and Inspection: able to speak in complete sentences and symmetric chest movement Cardio regular rate GI soft to palpation, non-tender and non-distended Narrative: León catheter draining clear yellow urine. Vaginal packing removed without incident. León catheter also removed with deflation of the balloon. Bladder / Kidney Exam: catheter in place Extremity normal to inspection Skin no rashes or lesions noted and no wounds Neuro oriented x3, CN's II-XII intact bilaterally and moves all extremities Psych mental status grossly normal, thought process normal and cooperative Assessment & Plan Assessment/Plan (1) Rectocele: (2) Abnormal uterine bleeding (AUB): (3) Uterine fibroid: (4) Adenomyosis: (5) Postoperative pain: PLAN: Plan Trial of void, home later today with or without León Continue postoperative restrictions
[2023-05-03 12:08] LABS: Hematocrit 33.2 % (37-47); Hemoglobin 10.7 g/dL (12.0-15.0); Mean Corp Hgb Conc 32.2 g/dL (32-36); Mean Corpuscular Hgb 29.5 pg (27.0-32.0); Mean Corpuscular Volume 91.5 fL (81-99); Mean Platelet Vol. 9.3 fl (6.2-12.0); Platelet Count 274 K/mm3 (150-450); RBC Distribution Width SD 47.1 fl (35.1-43.9); Red Blood Count 3.63 M/mm3 (4.2-5.4); White Blood Count 10.4 K/mm3 (4.4-11.0)
--- NOTE | 2023-05-03 13:44 | PCM.DC ---
Discharge Instructions Diet Discharge Diet: No restrictions Activity May shower in (days): 1 May resume sexual activity in: 8 weeks Additional Activity Instructions:: No exercise, no strenuous activity, no sexual activity, no vacuuming, no hot tubs/swimming/tub bathing Dressing / Incision Call your doctor if your incision/area has: Continuous Slow Oozing, Sudden Increased Bleeding, Increased Pain/ Swelling and Foul Smelling Discharge Call your doctor if you observe: Fever of 101 or Higher, Inability to urinate and Inability to have a bowel movement Follow Up Care Please Follow Up With: Lisa Yates MD When: as scheduled or as needed. 1-2 and 6 weeks. Call [phone] to schedule or send a [employer] message with nonurgent questions Test Results: Test results from this visit will be discussed in further detail at your follow-up appointment, if applicable. Discharge Plan Admission Admit Date/Time: 05/02/23 12:18 Primary Reason for Your Visit: Laparoscopic assisted vaginal hysterectomy, Attending Provider: Lisa Yates Primary Care Provider: Brenden Disla Consulting Providers: Keena Connolly Discharge Orders/Prescriptions Prescriptions: New oxycodone 5 mg tablet 5 mg PO Q8H PRN (Reason: severe pain) 7 Days Qty: 10 0RF ibuprofen 800 mg tablet 800 mg PO Q8H PRN (Reason: pain) 30 Days Qty: 60 0RF Continued multivitamin [Multiple Vitamins] 1 EACH tablet 1 ea PO DAILY polyethylene glycol 3350 17 GM powder in packet 17 g PO DAILY ascorbic acid (vitamin C) [Vitamin C] 500 mg Capsule, Extended Release 500 mg PO DAILY cholecalciferol (vitamin D3) [Vitamin D3] 25 mcg (1,000 unit) Tablet 25 mcg PO DAILY cephalexin 500 mg capsule 500 mg PO TID Patient Comments: take 1 capsule by mouth three times a day until finished Held ferrous sulfate 325 mg (65 mg iron) Capsule, Extended Release 65 mg PO QODAY Hold Instructions: Resume on 05/15/23. hold until bowel movements regular Discontinued Ibuprofen [Motrin] 800 MG tablet 800 mg PO PRN PRN (Reason: Pain) tranexamic acid 650 mg tablet 1,300 mg PO TID PRN (Reason: HEAVY BLEEDING) Patient Comments: FOR HEAVY BLEEDING DURING PEROID Referrals / Follow Up: [place],Brenden, MD [Primary Care Provider] - Disposition Disposition (needs filled in before D/C Order can be placed): Home, Self Care
[2023-05-03 15:30] VITALS: BP 147/80; PULSE 80; RESP 18; TEMP 37.1; O2SAT 98
[2023-05-03] MEDS: 0.9% Saline Lock 10 ML Syringe IV (15:31)
== END 2023-05-03 19:17 | disposition home or self-care (01) ==
LOC: SDC 12:20 → MS3 12:20
PROVIDERS: Anesthesiology; Admitting Provider Urology; PCP Family Medicine; Referring Provider Obstetrics & Gynecology; Visit Provider Obstetrics & Gynecology
PROC: 0UT9FZZ Resection of Uterus, Via Natural or Artificial Opening With Percutaneous Endoscopic Assistance (ICD-10-PCS; CPT 58553; principal; 2023-05-02 07:05)
PROC: (CPT 57260; 2023-05-02 07:05)
DX: D25.9 Leiomyoma of uterus, unspecified (principal); N18.6 End stage renal disease; N80.03 Adenomyosis of the uterus; N93.9 Abnormal uterine and vaginal bleeding, unspecified; Z79.899 Other long term (current) drug therapy; K58.9 Irritable bowel syndrome, unspecified; N94.19 Other specified dyspareunia; R35.1 Nocturia
CPT/HCPCS: 58553; 00944; 57250; 57282; 36415; 51702; 81025; 82962; 83735; 85027; 86850; 86900; 86901; 88307; 94668; 96361; 96365; 96366; 96372; 96375; 96376; 99221; 99252; J7120; A4216; C1758; G0378; G0463; J2405; J3475

== ENCOUNTER → 2023-09-24 | Outpatient (CLI) | payer BC, SELFPAY ==
--- NOTE | 2023-09-24 08:26 | CT_ITS ---
STUDY: CT ABDOMEN AND PELVIS WITH CONTRAST REASON FOR EXAM: Female, 48 years old. PELVIC PAIN/ACUTE VAGINITIS RADIATION DOSAGE (If Supplied By Facility): CTDIvol = ( 16.15 ) mGy, DLP = ( 1291.59 ) mGycm TECHNIQUE: Transaxial images were obtained from the dome of the diaphragm to the symphysis pubis without oral contrast. IV 100mL Isovue-370 was administered. Sagittal and coronal images were reconstructed. Individualized dose optimization techniques were used for this CT. COMPARISON: Comparison is made with prior study dated November 14, 2018. FINDINGS: The visualized lung bases are unremarkable. The visualized portions of the heart are within normal limits. Stable 9.3 mm hypodensity in the medial inferior aspect of the right lobe of the liver. This most likely represents a small hemangioma. Normal gallbladder and extrahepatic biliary system. Normal spleen. Normal pancreas. Normal bilateral adrenal glands. Normal right kidney. Normal left kidney. Normal visualized stomach. Normal small intestine. Moderate amount of fecal material is seen in the colon. There is non-visualization of the appendix. Normal abdominal aorta. Normal inferior vena cava. Normal retroperitoneum. Normal urinary bladder. There is absence of the uterus consistent with a prior hysterectomy. There is a 4.3 cm x 3.2 cm septated cystic density in the left adnexa. Normal abdominal wall. Normal osseous structures. CT/Abdomen/Pelvis WITH Contrast IMPRESSION: Stable 9.3 mm hypodensity in the medial anterior aspect of the right lobe of the liver suggestive of a small hemangioma. 3.2 cm x 4.3 cm septated cystic mass in the left adnexa. Electronically Signed: Axel Badillo MD at 13:26 EDT ,
== END | disposition home or self-care (01) ==
LOC: CT 08:25
PROVIDERS: PCP Family Medicine; Referring Provider Urology; Visit Provider Urology
DX: N76.0 Acute vaginitis (principal); R10.2 Pelvic and perineal pain
CPT/HCPCS: 74177; Q9967

== ENCOUNTER 2023-10-24 08:47 | Day surgery (SDC) | payer BC, SELFPAY ==
[2023-10-24 09:07] VITALS: BP 150/101; PULSE 95; RESP 16; TEMP 37.4; O2SAT 97; BMI 33.7
[2023-10-24] MEDS: Lactated Ringers 1,000 ML 15 ML IV (09:19)
--- NOTE | 2023-10-24 09:38 | DCINST_ITS ---
Discharge Instructions Diet Discharge Diet: No restrictions Activity Discharge Activity: May Shower Additional Activity Instructions:: No tub bathing, swimming hot tubs or intercourse until given permission in the office Dressing / Incision Call your doctor if your incision/area has: Continuous Slow Oozing, Sudden Increased Bleeding and Foul Smelling Discharge Call your doctor if you observe: Fever of 101 or Higher, Inability to urinate and Inability to have a bowel movement Follow Up Care Please Follow Up With: Keena Connolly MD When: The office will call the patient to make follow-up arrangements. Test Results: Test results from this visit will be discussed in further detail at your follow- up appointment, if applicable. Discharge Plan Admission Attending Provider: Keena Connolly Primary Care Provider: Brenden Disla Discharge Orders/Prescriptions Prescriptions: New oxycodone-acetaminophen [Percocet] 5-325 mg tablet 1 tab PO Q8H PRN (Reason: pain) 3 Days Qty: 10 0RF Continued multivitamin [Multiple Vitamins] 1 EACH tablet 1 ea PO DAILY polyethylene glycol 3350 17 GM powder in packet 17 g PO DAILY ascorbic acid (vitamin C) [Vitamin C] 500 mg Capsule, Extended Release 500 mg PO DAILY cholecalciferol (vitamin D3) [Vitamin D3] 25 mcg (1,000 unit) Tablet 25 mcg PO DAILY ibuprofen 800 mg tablet 800 mg PO Q8H PRN (Reason: pain) 30 Days Qty: 60 0RF Culturelle 15 billion cell capsule, sprinkle 1 cap PO DAILY quercetin 500 mg capsule 500 mg PO QODAY acetaminophen [Acetaminophen Extra Strength] 500 mg tablet 1,000 mg PO Q6H PRN PRN (Reason: pain) Referrals / Follow Up: Brenden Disla MD [Primary Care Provider] - Disposition Disposition (needs filled in before D/C Order can be placed): Home, Self Care
--- NOTE | 2023-10-24 09:39 | PCM.OPRPT ---
Problems Associated Problem List Diagnoses (1) Rectocele: Report of Operation Date of Procedure: 10/24/23 Pre-Operative Diagnosis: Pelvic pain and abnormal vaginal bleeding after posterior repair Post-Operative Diagnosis: Same Surgery/Procedure Performed:: Pelvic exam under anesthesia, revision rectocele, cystoscopy Surgeon: Keena Connolly Type of Anesthesia: General Specimen's removed: None Estimated Blood Loss (mL): 10cc Description of Procedure: The patient is a 48-year-old female who underwent a posterior repair in April and has been having pelvic pain and bleeding. She has had multiple pelvic examinations in the office and a pelvic ultrasound which were difficult secondary to her discomfort. She has been treated for infection and multiple cultures have been negative. We have decided to proceed with evaluation under anesthesia for a more thorough examination. Informed consent was obtained. The patient was taken to the operating room and placed on the operating room table. Anesthesia monitored the head, neck, airway, IV access and vital signs throughout the case. Once anesthesia was appropriately administered the patient was placed into dorsolithotomy position and was prepped and draped in usual sterile fashion. Pelvic examination revealed an opening of the posterior vaginal mucosa from approximately 1 cm distal to the right sacrospinous ligament suture all the way down to approximately 1.5 cm proximal to the introitus. This was closed with interrupted 3-0 PDS sutures. A rectal examination was performed to ensure that there was no involvement of the rectum. Hemostasis was obtained. The vaginal vault was filled with estrogen cream. The cystoscope was then inserted through the urethra under direct visualization into the urinary bladder. A cystoscopic evaluation of the bladder mucosa and the urethra was performed finding no evidence of mass, erythema, ulceration or foreign body. The patient's bladder was then emptied and the cystoscope was removed. She was awakened and taken to the recovery room in good condition. Grafts/Implants Used: None Complications None Admit VTE Documentation VTE Present on Admission: Yes VTE Mechan Device Prophylaxis: SCD's VTE Pharm Prophylaxis ordered?: No Reason prophylaxis not ordered:: Treatment Not Indicated
[2023-10-24] MEDS: Cefazolin 2 GM in 0.9% Normal Saline (100mL Bag) 100 ML IV (09:47)
[2023-10-24] MEDS: Estrogens,Conj. 1 Tube 1 DOSE (10:22)
[2023-10-24 10:40] VITALS: BP 127/77; BP 150/101; PULSE 95; RESP 16; TEMP 36.6; O2SAT 96
[2023-10-24 10:45] VITALS: BP 138/84; BP 150/101; PULSE 78; RESP 16; O2SAT 98
[2023-10-24 11:00] VITALS: BP 112/68; BP 137/79; BP 150/101; PULSE 76; PULSE 78; RESP 16; O2SAT 95; O2SAT 97
[2023-10-24 11:25] VITALS: BP 121/83; BP 150/101; PULSE 82; RESP 16; TEMP 37.5; O2SAT 96
[2023-10-24 12:39] VITALS: BP 147/80; BP 150/101; PULSE 88; RESP 16; TEMP 36.7; O2SAT 95
== END 2023-10-24 12:42 | disposition home or self-care (01) ==
LOC: SDC 08:47 → AC 08:48
PROVIDERS: PCP Family Medicine; Referring Provider Urology; Visit Provider Urology
PROC: 0TJB8ZZ Inspection of Bladder, Via Natural or Artificial Opening Endoscopic (ICD-10-PCS; CPT 57410; principal; 2023-10-24 09:55)
DX: N93.9 Abnormal uterine and vaginal bleeding, unspecified (principal); N81.6 Rectocele; R10.2 Pelvic and perineal pain; Z90.710 Acquired absence of both cervix and uterus; Z90.79 Acquired absence of other genital organ(s); Z87.19 Personal history of other diseases of the digestive system
CPT/HCPCS: 57410; 52000; 00940; 45560; J7120; J2405

== ENCOUNTER 2024-05-28 08:00 | Outpatient (RCR) | payer BC, SELFPAY ==
--- NOTE | 2024-03-02 19:37 | HP.PTEVAL_ITS ---
Patient's Visit Information Visit Information Visit Information: EVERARDO LAGUERRE is a 48 year old F referred to Physical Therapy by Dr. Keena Connolly MD with a diagnosis of REVISION OF RECTOCELE 10/24/23. Date of Evaluation: 03/02/24 Physical Therapist: Cindy Kern PT, Cert MDT Visit Plan Frequency: 1x/Week Duration: 2-4 Months Plan: PF THERAPY FOR STRENGTHENING, LENGTHENING/RELAXATION AND ENDURANCE TRAINING. URINARY URGE AND FREQUENCY EDUCATION. HEALTHY BLADDER HABIT EDUCATION. TRAINING IN COORDINATION OF PELVIC FLOOR MUSCULATURE WITH HIP AND CORE (TRANSVERSE ABDOMINUS) MUSCULATURE. CORE STRENGTHENING. POSTURE TRAINING. TIBURCIO LE ROM, STRETCHING AND STRENGTHENING. TRAINING IN ABDOMINAL CAVITY PRESSURE MGMT WITH ADL'S. Subjective Subjective: Work/Leisure: [employer] FOR GRADES 5 TH[employer]OUGH 12. Disability: NO Present symptoms: DISCOMFORT AND WEAKNESS IN VAGINAL AREA S/P PROLAPSE SURGERY 10/24/2023. Present since: 2020 Pain Scale: INTERMITTENT PAIN RANGING 0/10 TO 7/10 Currently: 09/24 Is it getting better, worse or staying the same: GETTING BETTER Commenced as a result of: CONSTIPATION Symptoms at onset: SMALL FEELING OF BULGING IN VAGINAL AREA Worse: LONG TRAVEL, WALKS, FAST WALKING, BENDING TO CLEAN, R SDLY, PRONE, SUPINE. Better: L SDLY, ADVIL, TYLON[place], WARM SHOWER Disturbed sleep: GETTING UP TO URINE ABOUT 2 TIMES A NIGHT. Coughing/sneezing/straining: INCREASED PAIN/DISCOMFORT IN VAGINAL AND ABDOMINAL REGIONS BUT NO FEELING OF BULGING THAT PATINET IS AWARE OF. How long can you delay the need to urinate: ABOUT AN HOUR (USE TO BE 30 MIN OR LESS) Prolapse (Falling out feeling): HARD FOR PATIENT SAY Frequency of Urination: 5-8 TIME A DAY Ability to stop urine flow: YES Ability to initiate urine stream: YES Dyspareunia: SOME DISCOMFORT WITH PENETRATIONAND SORE AFTER - JUST RESUMED SEXUAL ACTIVITY IN THE LAST WEEK. Gait: SLOW, GUARDED AND UNCOMFORTABLE. SOMETIMES PAINFUL. Bowel Incontinence: NO Accidents: NO Unexplained weight loss: NO Imaging: NONE RECENT. PMH/Recent major surgery: CHRONIC LBP (PAIN MGMT - INJECTIONS), IBS, TACHYCARDIA, MIGRAINES, R KNEE SX, LAPARASCOPY WITH TIBURCIO SALPINGECTOMY, L SHLD SX, POSTERIOR REPAIR, SSLF 05/02/23. 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 HAD SOME SMALL AMT OF RED DISCHARGE ONE DAY WHEN WENT TO [facility] TO SEE SON SHOW HORSES AT [facility] LAST WEEK. Objective Objective: Sitting/Standing Posture: ANTERIOR PELVIC TILT. R ILIAC CREST HIGHER THAN LEFT. Other Observations: THIS PATIENT AMBULATES INDEP'LY IN AND OUT OF PT WITH SLOW GUARDED GAIT PATTERN WITH DECREASED CADANCE, DECREASED TIBURCIO STRIDE LENGTH AND DECREASED TRUNK ROTATION. TRANSFERS ARE ALSO SLOW AND GUARDED. Sensory deficit: TIBURCIO LE LIGHT TOUCH SENSATION IS GROSSLY INTACT AND SYMMETRICAL ROM deficit: TIBURCIO HIP ADD AND HIP FLEXOR TIGHTNESS. Motor deficit: THIS PT PROCEEDED CAREFULLY WITH TESTING DUE TO PATIENTS GUARDING AND C/O'S OF PAIN. PATIENT DETERMINED LEVEL OF FORCE WITH TESTING. TIBURCIO HIP STRENGTH GROSSLY 4-/5, TIBURCIO KNEES 4-/5, TIBURCIO ANKLES 4-/5 WITH MMT'ING HOWEVER PATIENT ABLE TO DEMO INDEP HEEL WALKING AND TOE WALKING WITH ONE UE LIGHT ASSIST. PATIENT AGREEABLE TO INTERNAL VAGINAL MANUAL TESTING OF PELVIC FLOOR STRENGTH: 3/5 X 4 REPS X 3 SEC EA. Dural Signs: NEGATIVE TIBURCIO LE'S. Lumbar mvmt loss: flex - NIL ext - MIN R SG - MOD L SG - MIN C/O VAGINAL DISCOMFORT WITH L SG AND FLEXION ROM TESTING. C/O LBP WITH EXT ROM TESTING. PATIENT REPORTS INCREASED LBP AND VAGINAL PAIN AFTER GENTLE LUMBAR ROM TESTING X 1 REPETION EA DIRECTION. Core strength POOR. Palpation: PATIENT C/O MILD TENDERNESS WITH EXTERNAL PALPATION OF PELVIC REGIONS. SHE ALSO REPORTS MILD TENDERNESS WITH LIGHT INTERNAL VAGINAL PALPATION OF THE PELVIC FLOOR MUSCULATURE ALL DIRECTIONS DURING AND AFTER EXAM. NORMAL TONE OF PELVIC FLOOR MUSCLES PALPATED. NO DISCHARE. FUNCTIONAL SCREEN: Incontinence Impact Questionnaire Score: 10 Urogenital Distress Inventory Score: 7 Goals Goal 1:: DECREASE C/O CORE AND GENITAL AREA PAIN BY AT LEAST 50% TO EASE ADL'S. Goal Time Frame: 4-6 Weeks Goal 2:: PATIENT WILL DEMONSTRATE/COMMUNICATE 10 CONSISTENT AND CONSECUTIVE 10 SECOND PELVIC FLOOR MUSCLE CONTRACTIONS TO DEMONSTRATE IMPROVED PELVIC FLOOR ENDURANCE. Goal Time Frame: 8-12 Weeks Goal 3:: PATIENT WILL BE ABLE TO DEMONSTRATE/COMMUNICATE PROPER POSTURE CONTROL AND BODY MECHANICS FOR ADL'S TO ALLEVIATE STRESS ON PELVIC FLOOR. Goal Time Frame: 4-6 Weeks Goal 4:: PATIENT WILL BE ABLE TO DEMONSTRATE/COMMUNICATE PROPER INTRA-ABDOMINAL PRESSURE MGMT WITH BENDING, LIFTING, PUSHING AND PULLING WITHIN ANY PHYSICIAN LIFTING LIMITS (CURRENTLY 10 LBS). Goal Time Frame: 2-4 Weeks Goal 5:: DEVELOP HEALTHY FLUID INTAKE HABITS WITH FLUID INTAKE OF ? BODY WEIGHT IN OUNCES PER DAY AND 2/3 BEING WATER AND NORMALIZE VOIDING FREQUENCY TO EVERY 3-4 HOURS. Goal Time Frame: 2-4 Weeks Goal 6:: PATIENT WILL BE INDEP WITH A HEP (ADDRESSING CORE, HIP AND PELVIC FLOOR WEAKNESS AND TIGHTNESS)/HOME INSTRUCTIONS FOR CONTINUED IMPROVEMENT ONCE FORMAL PHYSICAL THERAPY CONCLUDES. Goal Time Frame: 8-12 Weeks Rehabilitation Potential Physical Therapy Diagnosis: DECREASED ACTIVITY AND DIFFICULTY WITH GAIT AND ADL'S S/P RECTOCELE REVISION 10/24/23 WITH CORE AND PELVIC FLOOR WEAKNESS ALONG WITH LE TIGHTNESS. Rehabilitation Potential: Good Anticipated Interventions Patient/Client Instruction: Educate patient on: Condition, Plan of Care and Risk Factors For the Purpose of:: To improve self management Therapeutic Exercise to Include: Strength training, Endurance training, Body me chanics, Postural training, Flexibilty training and Neuromotor development Text: Thank you for the opportunity to evaluate your patient. For Medicare and Medicare HMO plans, please review the plan of care and approve it. It will need to be FAXED BACK to us at [phone] for Medicare purposes. For Medicare only, by signing this I certify the plan of care. Please let me know if there are questions or concerns regarding this plan of care. Physician Signature: Date:
--- NOTE | 2024-05-28 12:58 | HP.PTDCSUM ---
Discharge Summary D/C summary: It has been my pleasure to treat EVERARDO LAGUERRE referred by Dr. Keena Connolly MD, with the diagnosis of REVISION OF RECTOCELE 10/24/23 for a total of 12 visit(s). Discharge Date: 05/28/24 Please see the following information for a summary of their discharge status. Subjective Subjective: PATIENT REPORTS SHE IS ABLE TO DO A LOT MORE WITHOUT PAIN AND SHE IS HAVING LESS PAIN OVER-ALL. I FEEL STRONGER WHEN I'M TRYING TO DO THINGS. STATES SHE REALLY DOESN'T KNOW HOW TO RATE HER % IMPROVEMENT SO GUESSED 70%. SHE REPORTS SHE USE TO BE REALLY ACTIVE AND IT HAS BEEN A YEAR SINCE SHE HAS BEEN ABLE TO DO WHAT SHE HAS WANTED TO DO. DOCTOR'S KAYA'T GOT CANCELLED 05/20 DUE TO PHYSICIAN ILLNESS. R/S'D FOR 06/01/24. Pain PELVIC FLOOR: Pain Intensity (Out of 10): 0 LOW BACK: Pain Intensity (Out of 10): 3 Overall Improvement % Improvement: 70 Objective Objective/Function: PATIENT WAS SEEN TODAY FOR RE-ASSESSMENT OF PROGRESS TOWARD THE SET PT GOALS AND THE NEED FOR FURTHER PHYSICAL THERAPY VS READINESS FOR DISCHARGE. ALL GOALS MET. PATIENT IS APPROPRATE FOR DISCHARGE TO [facility]. WRITTEN HEP INSTRUCTIONS PROVIDED. FUNCTIONAL SCREEN: Incontinence Impact Questionnaire Score: 9 Urogenital Distress Inventory Score: 2 Goals Goal 1:: DECREASE C/O CORE AND GENITAL AREA PAIN BY AT LEAST 50% TO EASE ADL'S. Goal Progress: Goal Met Goal 2:: PATIENT WILL DEMONSTRATE/COMMUNICATE 10 CONSISTENT AND CONSECUTIVE 10 SECOND PELVIC FLOOR MUSCLE CONTRACTIONS TO DEMONSTRATE IMPROVED PELVIC FLOOR ENDURANCE. Goal Progress: Goal Met Goal 3:: PATIENT WILL BE ABLE TO DEMONSTRATE/COMMUNICATE PROPER POSTURE CONTROL AND BODY MECHANICS FOR ADL'S TO ALLEVIATE STRESS ON PELVIC FLOOR. Goal Progress: Goal Met Goal 4:: PATIENT WILL BE ABLE TO DEMONSTRATE/COMMUNICATE PROPER INTRA-ABDOMINAL PRESSURE MGMT WITH BENDING, LIFTING, PUSHING AND PULLING WITHIN ANY PHYSICIAN LIFTING LIMITS (CURRENTLY 10 LBS). Goal Progress: Goal Met Goal 5:: DEVELOP HEALTHY FLUID INTAKE HABITS WITH FLUID INTAKE OF ? BODY WEIGHT IN OUNCES PER DAY AND 2/3 BEING WATER AND NORMALIZE VOIDING FREQUENCY TO EVERY 3-4 HOURS. Goal Progress: Goal Met Goal 6:: PATIENT WILL BE INDEP WITH A HEP (ADDRESSING CORE, HIP AND PELVIC FLOOR WEAKNESS AND TIGHTNESS)/HOME INSTRUCTIONS FOR CONTINUED IMPROVEMENT ONCE FORMAL PHYSICAL THERAPY CONCLUDES. Goal Progress: Goal Met Plan Plan: D/C D/C Information d/c sentence: If there are questions or concerns regarding this patient's physical therapy, please feel free to call me at [phone]. Thank you for the referral of this patient. Sincerely, Cindy Kern, PT, Cert MDT Balance/Gait/Functional tests Improvement % Improvement: 70
== END 2024-05-28 19:00 | disposition home or self-care (01) ==
LOC: PT 08:00
PROVIDERS: PCP Family Medicine; Referring Provider Urology; Visit Provider Urology
DX: Z98.890 Other specified postprocedural states (principal)
CPT/HCPCS: 97110; 97162; 97530